=== PATIENT | male | born 1965 | race Caucasian/White ===

== ENCOUNTER 2019-08-28 17:43 | Inpatient (IN) | payer OTHER ==
[~2019-08-28] VITALS: Ht 180.3 cm; Wt 101.2 kg
[2019-08-28 17:52] VITALS: Ht 180.3 cm; Wt 101.2 kg
[2019-08-28 18:16] LABS: BASOPHIL % 0.6 % (0-2); PLATELET COUNT 206 x10^3mcL (130-400); RED CELL DISTRIBUTION WIDTH 13.7 % (11.5-14.5)
[2019-08-28 18:24] LABS: CALCIUM 8.6 mg/dL (8.5-10.1); CARBON DIOXIDE 29.4 mmol/L (21-32); CHLORIDE SERUM 105 mmol/L (98-107); GFR1 > 60 mL/min; GLUCOSE SERUM 109 mg/dL (74-106); POTASSIUM SERUM 3.6 mmol/L (3.5-5.1); SODIUM SERUM 142 mmol/L (136-145)
[2019-08-28 18:28] LABS: ALBUMIN 3.6 g/dL (3.4-5.0); ALKALINE PHOSPHATASE 88 U/L (46-116); ALT/SGPT 33 U/L (16-63); AST/SGOT 21 U/L (15-37); TOTAL PROTEIN, SERUM 7.7 g/dL (6.4-8.2)
[2019-08-28 19:45] LABS: CHOLESTEROL/HDL RATIO 5.2
[2019-08-28 19:51] LABS: T3 TOTAL 1.53 ng/mL
[2019-08-28 19:55] LABS: FREE T4 1.06 ng/dL (0.76-1.46); FREE THYROXINE INDEX 2.9 ug/dL (1.4-4.5); T4(THYROXINE) 8.8 ug/dL (4.7-13.3)
[2019-08-28 20:09] LABS: microscopic required? YES; urine erythrocyte NEGATIVE (NEGATIVE)
[2019-08-28 20:18] LABS: AMPHETAMINE QUAL UR NONE DETECTED (See below)
[2019-08-28 20:19] VITALS: BP 198/122
[2019-08-28 21:41] VITALS: BP 158/103
[2019-08-29 05:20] VITALS: BP 157/97
[2019-08-29 06:49] LABS: BASOPHIL % 0.2 % (0-2); CALCIUM 8.9 mg/dL (8.5-10.1); CARBON DIOXIDE 25.6 mmol/L (21-32); CHLORIDE SERUM 101 mmol/L (98-107); CREATININE SERUM 0.9 mg/dL (0.7-1.3); GFR1 > 60 mL/min; GLUCOSE SERUM 149 mg/dL (74-106); PLATELET COUNT 219 x10^3mcL (130-400); POTASSIUM SERUM 3.7 mmol/L (3.5-5.1); RED CELL DISTRIBUTION WIDTH 14.2 % (11.5-14.5); SODIUM SERUM 138 mmol/L (136-145)
[2019-08-29 09:22] VITALS: BP 165/100
[2019-08-29 13:22] VITALS: BP 167/105
[2019-08-29 16:21] VITALS: BP 152/84
[2019-08-29 20:08] VITALS: BP 142/106
[2019-08-29 22:00] VITALS: BP 145/99
[2019-08-30 05:42] VITALS: BP 151/86
[2019-08-30 06:25] LABS: BASOPHIL % 0.6 % (0-2); PLATELET COUNT 213 x10^3mcL (130-400); RED CELL DISTRIBUTION WIDTH 14.2 % (11.5-14.5)
[2019-08-30 06:56] LABS: CALCIUM 9.3 mg/dL (8.5-10.1); CARBON DIOXIDE 28.3 mmol/L (21-32); CHLORIDE SERUM 102 mmol/L (98-107); CREATININE SERUM 1.1 mg/dL (0.7-1.3); GFR1 > 60 mL/min; GLUCOSE SERUM 112 mg/dL (74-106); MAGNESIUM 2.1 mg/dL (1.8-2.4); PHOSPHOROUS 4.3 mg/dL (2.5-4.9); POTASSIUM SERUM 3.8 mmol/L (3.5-5.1); SODIUM SERUM 140 mmol/L (136-145)
[2019-08-30 08:02] VITALS: BP 151/104
[2019-08-30] MEDS ORDERED: BAY PO (16:02)
[2019-08-30] MEDS ORDERED: LIPITOR80 MG PO (16:02)
[2019-08-30] MEDS ORDERED: TOPROL XL100 MG PO (16:02)
[2019-08-30 16:24] VITALS: BP 132/80
== END 2019-08-30 18:03 | disposition home health service (06) | DRG 45 ==
LOC: ED 17:43 → DU 19:14
PROVIDERS: Emergency Medicine; ADMIT Family Medicine
DX: I63.9 Cerebral infarction, unspecified (principal); G90.8 Other disorders of autonomic nervous system; I48.91 Unspecified atrial fibrillation; E78.5 Hyperlipidemia, unspecified; F17.210 Nicotine dependence, cigarettes, uncomplicated; I16.1 Hypertensive emergency; R29.703 NIHSS score 3
CPT/HCPCS: 83880; 84439; 92526-GN; 92610-GN; 97116-GP; 97530-GP; G0378; J0360; J1644; J2405; J2765; J3490; J7030; J8597; Q0092; Q9967